=== PATIENT | female | born 1945 | race Caucasian/White ===

== ENCOUNTER 2022-12-27 08:46 | Emergency (ER) | payer OTHER, MEDICARE | END 2022-12-27 11:55 | disposition home or self-care (01) | LOC: CSHERS 08:46 | DX: S01.81XA Laceration without foreign body of other part of head, initial encounter (principal); K21.9 Gastro-esophageal reflux disease without esophagitis; W01.0XXA Fall on same level from slipping, tripping and stumbling without subsequent striking against object, initial encounter | CPT/HCPCS: 70450 ==

== ENCOUNTER 2024-07-22 09:40 | Outpatient (CLI) | payer MEDICARE | END 2024-07-22 09:41 | disposition home or self-care (01) | LOC: CSHMRI 09:40 | PROVIDERS: ATTEND Neurological Surgery | DX: M48.061 Spinal stenosis, lumbar region without neurogenic claudication (principal); M41.86 Other forms of scoliosis, lumbar region; M48.07 Spinal stenosis, lumbosacral region | CPT/HCPCS: 72148 ==

== ENCOUNTER 2024-10-01 13:19 | Outpatient (CLI) | payer MEDICARE | END 2024-10-01 13:20 | disposition home or self-care (01) | LOC: CSHRAD 13:19 | PROVIDERS: ATTEND Neurological Surgery | DX: M43.16 Spondylolisthesis, lumbar region (principal); M47.816 Spondylosis without myelopathy or radiculopathy, lumbar region; Z98.890 Other specified postprocedural states | CPT/HCPCS: 72100 ==